=== PATIENT | female | born 1960 | race Caucasian/White ===

== ENCOUNTER 2019-01-01 11:51 | Observation (INO) ==
[2019-01-01] MEDS ORDERED: Ipratropium/Albuterol Neb 3 ML IH ONE (11:53)
[2019-01-01 12:28] LABS: Eosinophils # 0.2 K/mcL (0.0-0.6); Hematocrit 47.5 % (35.3-44.9); Hemoglobin 16.6 g/dL (11.5-15.4); Mean Corpuscular HGB Conc 34.9 g/dL (31.6-35.5); Mean Corpuscular Hemoglobin 33.5 pg (28.0-33.3); Mean Platelet Volume 9.4 fL (9.4-12.4); Platelet Count 223 K/mcL (140-400); Red Blood Count 4.95 M/mcL (3.82-4.97)
[2019-01-01 12:46] LABS: BUN/Creatinine Ratio 12 (6-26); Blood Urea Nitrogen 7 mg/dL (8-23); Calcium 9.4 mg/dL (8.6-10.3); Carbon Dioxide 27 mEq/L (23-29); Chloride 100 mEq/L (98-107); Glucose 133 mg/dL (70-105); Osmolality,Calculated 286 (280-300); Potassium 3.6 mEq/L (3.5-5.1); Sodium 138 mEq/L (136-145); eGFR For Non-African Americans > 60 (> 60)
[2019-01-01 12:47] LABS: Troponin I < 0.03 ng/mL (< 0.04)
[2019-01-01 12:57] LABS: ABG Base Excess -2 mEq/L (-2 to 3); ABG HCO3 23 mEq/L (21-27); ABG Oxygen Saturation 90 % (95-98); ABG PCO2 40 mmHg (35-45); ABG PH 7.38 pH Units (7.32-7.45); ABG PO2 60 mmHg (85-104); ABG TCO2 25 mEq/L (20-26); Blood Gas Respiration Rate 12
[2019-01-01 13:05] LABS: Anisocytosis 1+ (Not Present); Lymphocytes # 1.1 K/mcL (0.6-4.6); Monocytes # 0.9 K/mcL (0.0-1.3); Neutrophils # 3.9 K/mcL (1.6-8.9); Platelet Estimate Normal (Normal); Polychromasia 1+ (Not Present)
[2019-01-01 13:06] LABS: Toxic Granulation Present (Not Present)
--- NOTE | 2019-01-01 13:12 | Emergency Department Note ---
Disposition Clinical Impression: Acute exacerbation of chronic obstructive airways disease, Acute respiratory distress Disposition: Admitted As Inpatient Condition: Fair Referrals: NONE,PCP [Primary Care Provider] - Time of Disposition: 13:19 SOB HPI - General Chief Complaint: ED Shortness of Breath/Dyspnea Stated Complaint: Shortness of breath Time Seen by Provider: 01/01/19 11:52 Source: patient, EMS Limitations: no limitations Nursing Notes Reviewed: Yes Vital Signs Reviewed: Yes - History of Present Illness Pt Subjective Complaint: shortness of breath Onset (ago): day(s) (3 days) Context: recent illness (Couple days before the onset of shortness of breath she had developed head cold and runny nose symptoms.) Severity: severe Consistency/Duration: constant Improves with: nothing Worsens with: exertion Known history of: COPD Associated symptoms: Reports: cough, wheezing. Denies: chest pain Treatment prior to arrival: oxygen, bronchodilator, NIPPV Cough present: Yes - Related Data Home oxygen amount: none Home Medications Medication Instructions Recorded Confirmed Aspirin 81 mg PO HS 07/13/15 11/06/18 Cholecalciferol (Vitamin D3) 1,000 unit PO DAILY 07/13/15 11/06/18 [Vitamin D] Clopidogrel Bisulfate [Plavix] 75 mg PO DAILY 07/13/15 11/06/18 Guaifenesin [Mucinex] 600 mg PO BID 07/13/15 11/06/18 Magnesium Oxide [Magnesium] 400 mg PO BID 07/13/15 11/06/18 Nitroglycerin [Nitrostat] 0.4 mg SL [id number] PRN 07/13/15 11/06/18 Roflumilast [Daliresp] 500 mcg PO 07/13/15 11/06/18 Docusate Sodium [Colace] 250 mg PO DAILY PRN 07/18/15 11/06/18 Pantoprazole Sodium [Protonix] 40 mg PO DAILY 07/18/15 11/06/18 OxyCODONE/APAP 7.5/325 [Percocet 1 tab PO Q6HR PRN 06/18/16 11/06/18 7.5/325 MG] Ranolazine [Ranexa] 500 mg PO BID 06/18/16 11/06/18 Loratadine [Allergy Relief] 10 mg PO DAILY 06/05/17 11/06/18 Niacin (24 HR) [Niaspan] 500 mg PO DAILY 06/05/17 11/06/18 Potassium Chloride [Klor-Con 10] 10 meq PO DAILY 06/05/17 11/06/18 EPINEPHrine [Epipen] 0.3 mg IM ONCE PRN 01/22/18 11/06/18 Ferrous Sulfate 325 mg PO BID 01/22/18 11/06/18 Immune Globulin, Gamma (IGG) 35 units IJ QWEEK 01/22/18 11/06/18 [Privigen 10% 10 GM/100 ML] Albuterol Sulfate [Ventolin Hfa] 2 puff IH Q4H PRN 07/22/18 11/06/18 Fluticasone Propionate Nasal 2 spr NS DAILY 07/22/18 11/06/18 [Flonase] Gabapentin [Neurontin] 300 mg PO TID 07/22/18 11/06/18 Losartan Potassium [Cozaar] 50 mg PO DAILY 07/22/18 11/06/18 Metformin HCl 1,000 mg PO BID 07/22/18 11/06/18 Metoprolol Succinate [Toprol Xl] 50 mg PO HS 07/22/18 11/06/18 Montelukast [Singulair] 10 mg PO HS 07/22/18 11/06/18 amLODIPine [Norvasc] 5 mg PO DAILY 07/22/18 11/06/18 glipiZIDE [Glucotrol] 10 mg PO BIDWM 07/22/18 11/06/18 Previous Rx's Medication Instructions Recorded Ascorbic Acid [Vitamin C] 500 mg PO BID tablet 06/21/16 Acetaminophen [Tylenol] 650 mg PO Q6HR PRN #0 tablet 09/07/16 Sertraline [Zoloft] 50 mg PO HS #30 tablet 09/12/16 Oxygen 2 - 5 l .ROUTE CONT #1 each 02/10/18 Budesonide Neb [Pulmicort Neb] 0.5 mg IH BIDR #60 inhsol 11/17/18 Calcium Carbonate [Tums] 1,000 mg PO Q4HR PRN tab.chew 11/17/18 DiphenhydraMINE [Benadryl] 25 mg PO HS PRN capsule 11/17/18 Ipratropium/Albuterol Neb [Duoneb] 3 ml IH [id number] #120 inhsol 11/17/18 Isosorbide MONOnitrate (24 HR) 90 mg PO DAILY #30 tab.er.24h 11/17/18 [Imdur] Simvastatin [Zocor] 10 mg PO HS #30 tablet 11/17/18 Theophylline Anhydrous [Theodur] 300 mg PO BID #60 tab.er.12h 11/17/18 Allergies Allergy/AdvReac Type Severity Reaction Status Date / Time Penicillins Allergy Difficulty Verified 07/22/18 10:41 Breathing Sulfa (Sulfonamide Allergy Difficulty Verified 07/22/18 10:41 Antibiotics) Breathing sulfamethoxazole Allergy Difficulty Verified 07/22/18 10:41 [From Bactrim] Breathing trimethoprim [From Bactrim] Allergy Difficulty Verified 07/22/18 10:41 Breathing furosemide [From Lasix] AdvReac Dizziness Verified 07/22/18 10:41 All systems ED: reviewed and negative except as stated. Constitutional: Denies: fever, chills ENT ED: Reports: congestion. Denies: ear pain, throat pain Cardiovascular: Denies: chest pain, palpitations Respiratory: Reports: cough, dyspnea, wheezes Gastrointestinal: Denies: abdominal pain, nausea, vomiting, diarrhea Integumentary: Denies: rash Neurological: Denies: headache Past Medical History - Past Medical History Attestation: Yes The following information was validated with the patient. 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 Absent: scleral icterus, conjunctival injection - ENT ENT exam: normal exam, normal oropharynx, mucous membranes moist, normal external ear exam - Neck Neck exam: Present: normal inspection, full ROM, trachea midline - Chest Chest inspection: Present: normal inspection, symmetric chest wall rise. Absent: tenderness - Respiratory Respiratory exam: Present: respiratory distress, wheezes, accessory muscle use - Cardiovascular Cardiovascular exam: Present: normal rhythm, tachycardia, normal heart sounds - Abdominal Exam Abdominal exam: Present: soft, Non-Tender, normal bowel sounds - Extremities Exam Extremities exam: Present: normal inspection. Absent: tenderness, pedal edema - Neurological Exam Neurological exam: Present: alert, oriented X3 - Psychiatric Psychiatric exam: Present: normal affect, normal mood - Skin Skin exam: Present: warm, dry. Absent: rash Course Course Narrative: Patient arrives emergency Department respiratory distress. Seems like a COPD exacerbation most likely precipitated by the upper or story infection. She was in the hospital from the end of October to mid November for pneumonia and COPD exacerbation. She been doing well at home until a few days ago. They had her on CPAP on route. We switched to BiPAP and ran doing nebs through it. She artery see steroids on route. We will finish the breathing treatments and see how the BiPAP worse and then we will check the blood gases to see status. - Reevaluation(s) Reevaluation #1: Patient did a lot better on the BiPAP. Heart rate is under 100 at this point. Blood pressure is good. O2 sats are holding at 91-92%. We checked a blood gas at this point and she has a pH of 7.40 and a PCO2 of 40 with a PO2 of 60. Chest x-ray is clear with no indication of pneumonia. Labs are good except for some hemoconcentration. Patient will need to be admitted to the hospital but she is showing significant improvement already. I have already spoken with the hospitalist and he is accepted the patient for admission. Time: 13:17 - Consultations Consultation #1: Dr. Hernadez, hospitalist - I discussed case with the hospitalist and he accepted the patient for admission. Time: 13:08 Vital Signs Temperature 97.6 F 01/01/19 11:53 Pulse Rate 106 01/01/19 11:53 Respiratory Rate 26 01/01/19 11:53 Blood Pressure 172/125 01/01/19 11:53 O2 Sat by Pulse Oximetry 91 01/01/19 11:53 Temperature 97.6 F 01/01/19 11:53 Pulse Rate 87 01/01/19 13:07 Respiratory Rate 18 01/01/19 13:07 Blood Pressure 137/71 01/01/19 13:07 O2 Sat by Pulse Oximetry 91 01/01/19 13:07 Oxygen Delivery Oxygen Delivery Bipap Shortness of Breath/Dyspnea - Medical Records Medical records reviewed: Yes I reviewed the patient's medical records. - Lab Data Lab results reviewed: Yes I reviewed the patient's lab results. Result diagrams: 01/01/19 12:20 01/01/19 12:20 Lab Results 01/01/19 01/01/19 01/01/19 Range/Units 12:20 12:20 12:20 WBC 6.1 (4.3-11.1) K/mcL RBC 4.95 (3.82-4.97) M/mcL Hgb 16.6 H (11.5-15.4) g/dL Hct 47.5 H (35.3-44.9) % MCV 96.0 (83.0-100.0) fL MCH 33.5 H (28.0-33.3) pg MCHC 34.9 (31.6-35.5) g/dL RDW 14.0 (11.5-14.5) % Plt Count 223 (140-400) K/mcL MPV 9.4 (9.4-12.4) fL Seg Neutrophils % 64.0 % Lymphocytes % 18.0 % Monocytes % 14.0 % Eosinophils % 4.0 % Neutrophils # 3.9 (1.6-8.9) K/mcL Lymphocytes # 1.1 (0.6-4.6) K/mcL Monocytes # 0.9 (0.0-1.3) K/mcL Eosinophils # 0.2 (0.0-0.6) K/mcL Toxic Granulation Present A (Not Present) Platelet Estimate Normal (Normal) Polychromasia 1+ A (Not Present) Anisocytosis 1+ A (Not Present) Sample Site ABG pH (7.32-7.45) pH Units ABG pCO2 (35-45) mmHg ABG pO2 (85-104) mmHg ABG HCO3 (21-27) mEq/L ABG Total CO2 (20-26) mEq/L ABG O2 Saturation (95-98) % ABG Base Excess (-2 to 3) mEq/L Chava Test Respiration Rate O2 Delivery Device Inspired O2 (1-15=lpm [id number]=%) Sodium 138 (136-145) mEq/L Potassium 3.6 (3.5-5.1) mEq/L Chloride 100 (98-107) mEq/L Carbon Dioxide 27 (23-29) mEq/L BUN 7 L (8-23) mg/dL Creatinine 0.60 (0.60-1.20) mg/dL Est GFR ( Amer) > 60 (> 60) Est GFR (Non-Af Amer) > 60 (> 60) BUN/Creatinine Ratio 12 (6-26) Glucose 133 H (70-105) mg/dL Calculated Osmolality 286 (280-300) Calcium 9.4 (8.6-10.3) mg/dL Troponin I < 0.03 (< 0.04) ng/mL B-Natriuretic Peptide 22 (Less than 100) pg/mL 01/01/19 Range/Units 12:54 WBC (4.3-11.1) K/mcL RBC (3.82-4.97) M/mcL Hgb (11.5-15.4) g/dL Hct (35.3-44.9) % MCV (83.0-100.0) fL MCH (28.0-33.3) pg MCHC (31.6-35.5) g/dL RDW (11.5-14.5) % Plt Count (140-400) K/mcL MPV (9.4-12.4) fL Seg Neutrophils % % Lymphocytes % % Monocytes % % Eosinophils % % Neutrophils # (1.6-8.9) K/mcL Lymphocytes # (0.6-4.6) K/mcL Monocytes # (0.0-1.3) K/mcL Eosinophils # (0.0-0.6) K/mcL Toxic Granulation (Not Present) Platelet Estimate (Normal) Polychromasia (Not Present) Anisocytosis (Not Present) Sample Site R Brach ABG pH 7.38 (7.32-7.45) pH Units ABG pCO2 40 (35-45) mmHg ABG pO2 60 L (85-104) mmHg ABG HCO3 23 (21-27) mEq/L ABG Total CO2 25 (20-26) mEq/L ABG O2 Saturation 90 L (95-98) % ABG Base Excess -2 (-2 to 3) mEq/L Chava Test N/A Respiration Rate 12 O2 Delivery Device BiPAP Inspired O2 40.0 (1-15=lpm [id number]=%) Sodium (136-145) mEq/L Potassium (3.5-5.1) mEq/L Chloride (98-107) mEq/L Carbon Dioxide (23-29) mEq/L BUN (8-23) mg/dL Creatinine (0.60-1.20) mg/dL Est GFR ( Amer) (> 60) Est GFR (Non-Af Amer) (> 60) BUN/Creatinine Ratio (6-26) Glucose (70-105) mg/dL Calculated Osmolality (280-300) Calcium (8.6-10.3) mg/dL Troponin I (< 0.04) ng/mL B-Natriuretic Peptide (Less than 100) pg/mL - Radiology Data Radiology results reviewed: Yes I reviewed the patient's radiology results. - EKG Data EKG attestation: Yes I reviewed and interpreted this EKG. EKG results narrative: Twelve-lead EKG performed at 11:56 AM. Ordered, reviewed and interpreted by ED physician shows sinus tachycardia at a rate of 105. Normal axis. Good hour progression across corneum. No obvious acute ischemic changes are identified although the baseline is little bit wavy because of her respiratory effort. Critical Care Time Critical Care Time: Yes Total Critical Care Time: 30 Attestation: Patient arrived in severe respiratory distress requiring my urgent evaluation and intervention. Spent time with the history and physical as well as serial evaluations. Managing the BiPAP. Ordering labs and x-rays and interpreting them and responding to the results. Arranging admission via consultation with hospitalist.
[2019-01-01] MEDS ORDERED: Levofloxacin 750 MG/150 ML 750 MG/150 ML BAG IVPB ONE (13:20)
[2019-01-01] MEDS ORDERED: methylPREDNISolone 125 MG/2 ML VIAL IVP ONE (14:47)
[2019-01-01] MEDS ORDERED: Naloxone 0.4 MG/ML INJ IVP PRN (14:47)
[2019-01-01] MEDS: Ipratropium/Albuterol Neb 3 ML IH SCH ×2 (16:12→20:12)
[2019-01-01] MEDS: Gabapentin 300 MG CAPSULE PO SCH ×2 (16:20→20:53)
[2019-01-01] MEDS: 0.9 % Sodium Chloride 1,000 ML IVC SCH (16:21)
[2019-01-01] MEDS: *HR* GlipiZIDE 5 MG TABLET PO SCH (18:13)
[2019-01-01] MEDS ORDERED: *HR* Dextrose 50 % in Water (Syg) 50 ML SYRINGE IVP PRN (18:18)
[2019-01-01] MEDS ORDERED: Dextrose Gel 15 GM/37.5 ML TUBE PO PRN ×2 (18:18)
[2019-01-01] MEDS ORDERED: Dextrose 4 GM Chewable Tablets PO PRN ×2 (18:18)
[2019-01-01] MEDS ORDERED: D5% in Water 1,000 ML IVC PRN (18:18)
[2019-01-01] MEDS: Budesonide Neb 0.5 MG/2 ML IH SCH (20:12)
--- NOTE | 2019-01-01 20:18 | Electrocardiograph Report ---
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
[2019-01-01] MEDS: traZODone 50 MG TABLET PO PRN (20:54)
[2019-01-01] MEDS: Ranolazine 500 MG TAB.ER.12H PO SCH (20:54)
[2019-01-01] MEDS: Metoprolol XL (24 HR) Succ 50 MG TAB.ER.24H PO SCH (20:54)
[2019-01-01] MEDS: Aspirin 81 MG TAB.CHEW PO SCH (20:54)
[2019-01-01] MEDS ORDERED: *HR* Metformin 500 MG TABLET PO SCH (21:00)
[2019-01-01] MEDS: *HR* OxyCODONE/APAP 7.5/325 TABLET PO PRN (21:10)
[2019-01-01] MEDS: Insulin LISPRO 300 UNITS/3 ML VIAL SQ SCH (21:19)
[2019-01-02] MEDS: Ipratropium/Albuterol Neb 3 ML IH SCH ×7 (00:15→23:44)
[2019-01-02] MEDS: 0.9 % Sodium Chloride 1,000 ML IVC SCH (02:10)
[2019-01-02] MEDS ORDERED: Loratadine 10 MG TABLET PO SCH (09:00)
[2019-01-02] MEDS: Isosorbide MONOnitrate (24 HR) 60 MG TAB.ER.24H PO SCH (09:32)
[2019-01-02] MEDS: *HR* Metformin 500 MG TABLET PO SCH ×2 (09:32→16:06)
[2019-01-02] MEDS: amLODIPine 5 MG TABLET PO SCH (09:32)
[2019-01-02] MEDS: Ranolazine 500 MG TAB.ER.12H PO SCH ×2 (09:32→20:56)
[2019-01-02] MEDS: Gabapentin 300 MG CAPSULE PO SCH ×3 (09:35→20:56)
[2019-01-02] MEDS: *HR* OxyCODONE/APAP 7.5/325 TABLET PO PRN ×3 (09:35→22:40)
[2019-01-02] MEDS: Insulin LISPRO 300 UNITS/3 ML VIAL SQ SCH ×4 (09:35→21:07)
[2019-01-02] MEDS: *HR* GlipiZIDE 5 MG TABLET PO SCH ×2 (09:36→16:05)
[2019-01-02] MEDS: Budesonide Neb 0.5 MG/2 ML IH SCH ×2 (10:02→20:17)
[2019-01-02] MEDS: Fluticasone Propionate Nasal 50 MCG/SPRAY BOTTLE NS SCH (10:44)
--- NOTE | 2019-01-02 12:15 | Internal Med History&Physical ---
Date of Encounter: 01/02/19 Time of Encounter: 11:45 Assessment and Plan (1) COPD exacerbation Current visit: No Status: Acute She was started on her home pulmonary regimen and Solu-Medrol emergency room. Theophylline will be discontinued to avoid interaction with Levaquin. Further workup will be done as needed. (2) Hypertension Current visit: No Status: Chronic Continue Norvasc, Cozaar, and Toprol Qualifiers: Hypertension type: essential hypertension Qualified Code(s): I10 - Essential (primary) hypertension (3) CASSIA (obstructive sleep apnea) Current visit: No Status: Chronic Continue BiPAP at bedtime (4) CAD (coronary artery disease) Current visit: No Status: Chronic Status post multiple stents. Continue aspirin, Plavix, Toprol, Norvasc, and Imdur Qualifiers: Coronary Disease-Associated Artery/Lesion type: [place] artery [place] vs. transplanted heart: [place] heart Associated angina: without angina Qualified Code(s): I25.10 - Atherosclerotic heart disease of [place] coronary artery without angina pectoris Internal Medicine - H&P: HPI Chief complaint: Dyspnea Admitted From: Emergency Dept Plans for Post Hospital Care: Home History of present illness: Ms. Cai is a 58 year old female who came to emergency room complaining of increased dyspnea onset evening of December 30. When symptoms did not improve after 2 days she came to emergency room. She was evaluated and was felt to have exacerbation of COPD. She was admitted to [facility] floor for ongoing care needs. She reports taking Levaquin 750 mg daily beginning 12/23/2018. Respiratory history is significant for having smoked from age 18 until quitting approximately 2 months ago. She smoked up to one and one half packs per day. PFTs 12/30/2018 showed FVC 55% predicted, FEV1 37% predicted, FEV1/FVC 52%, MVV 38% predicted, RV 126% predicted, and DLCO (uncorrected) 12% predicted. Findings were consistent with severe obstructive lung disease with hyperinflation and air trapping. There also appears to be mild to moderate restrictive lung disease. Chest CT of 10/24/2018 showed diffuse emphysematous changes without obvious infiltrate, lymphadenopathy, or other worrisome pathology. She reports she has been prescribed oxygen which she wears routinely at bedtime but only uses during the daytime when she feels dyspneic. She reports rare daytime use. She has been diagnosed with CASSIA and uses BiPAP at bedtime. She reports spontaneous pneumothorax requiring chest tube in 2018. Past Med Surg Social Fam HX - Past Medical History Medical history: asthma, COPD, coronary artery disease, diabetes, hyper lipidemia, hypertension, myocardial infarction, other Additional medical history: IGG Psychiatric history: anxiety, depression - Past Surgical History Surgical History: , herniorrhaphy, hysterectomy, other Additional surgical history: knee surgery, bilat shoulder surgery, 5 cardiac stents - Social History Smoking Status: Current every day smoker Packs per day: 0.5 Smokeless Tobacco Status: No Alcohol use: none Drug use: none - Family History Paternal Grandfather Living Status: Hx Family Cardiac Disorders: Yes ([place]) Paternal Grandmother Adopted: No Living Status: Hx Family Cancer: Yes (Lung cancer) Mother Hx Family Cardiac Disorders: Yes (Heart disease and hypertension) Hx Family Cancer: Yes (leukemia, breast cancer) Hx Family Endocrine Disorder: Yes (Diabetes) Father Living Status: Hx Family Cardiac Disorders: Yes Hx Family Respiratory Disorders: Yes Hx Family Cancer: No Hx Family Endocrine Disorder: No Brother Living Status: Hx Family Cancer: Yes (unknown type cancer) Sister Living Status: Hx Family Cardiac Disorders: Yes (Heart disease) Hx Family Respiratory Disorders: Yes (COPD) Hx Family Cancer: Yes (leukemia) Hx Family Endocrine Disorder: Yes ("thyroid problems") Internal Medicine - H&P: Meds Amlodipine Besylate 5 mg PO DAILY 01/01/19 [History] Aspirin [Lo-Dose Aspirin EC] 81 mg PO DAILY 01/01/19 [History] Azithromycin [Zithromax] 250 mg PO DAILY 01/01/19 [History] Budesonide [Pulmicort] 1 aerosol IH BID 01/01/19 [History] Clopidogrel [Plavix] 75 mg PO DAILY 01/01/19 [History] Fluticasone Propionate [Flovent Diskus] 100 mcg IH TID 01/01/19 [History] Fluticasone Propionate [Flovent Diskus] 100 mcg IH TID PRN 01/01/19 [History] Gabapentin [Neurontin] 300 mg PO TID 01/01/19 [History] GlipiZIDE [Glipizide Xl] 5 mg PO BID 01/01/19 [History] Isosorbide MONOnitrate [Isosorbide Mononitrate ER] 120 mg PO DAILY 01/01/19 [History] Levofloxacin [Levaquin] 750 mg PO DAILY 01/01/19 [History] Losartan Potassium [Cozaar] 50 mg PO DAILY 01/01/19 [History] Metformin HCl [Glucophage] 1,000 mg PO BID 01/01/19 [History] Metoprolol Succinate 50 mg PO HS 01/01/19 [History] Montelukast [Singulair] 10 mg PO DAILY 01/01/19 [History] Nitroglycerin [Nitrostat] 0.4 mg SL PRN PRN 01/01/19 [History] Oxycodone HCl/Acetaminophen [Percocet 7.5-325 mg Tablet] 1 each PO DAILY 01/01 [History] Pantoprazole Sodium 40 mg PO DAILY 01/01/19 [History] Potassium Chloride [Klor-Con 10] 10 meq PO DAILY 01/01/19 [History] Ranolazine [Ranexa] 500 mg PO BID 01/01/19 [History] Roflumilast [Daliresp] 500 mcg PO DAILY 01/01/19 [History] Sertraline [Zoloft] 50 mg PO DAILY 01/01/19 [History] Simvastatin [Zocor] 40 mg PO HS 01/01/19 [History] Theophylline Anhydrous [[place]ob[place]-24] 300 mg PO DAILY 01/01/19 [History] Theophylline Anhydrous [Theophylline] 300 mg PO BID 01/01/19 [History] Allergy/AdvReac Type Severity Reaction Status Date / Time Penicillins Allergy Difficulty Verified 07/22/18 10:41 Breathing Sulfa (Sulfonamide Allergy Difficulty Verified 07/22/18 10:41 Antibiotics) Breathing sulfamethoxazole Allergy Difficulty Verified 07/22/18 10:41 [From Bactrim] Breathing trimethoprim [From Bactrim] Allergy Difficulty Verified 07/22/18 10:41 Breathing furosemide [From Lasix] AdvReac Dizziness Verified 07/22/18 10:41 All Systems PM: A 10-system review of systems was performed and is negative for pertinent findings except as documented above in the HPI. Review of systems: Gen.: Her weight has been stable for the past year Cardiovascular: She has history of hypertension. She reports 2 MIs with a total of 5 stents placed. Her last heart catheter was 2015 with stents placed. She had Regadenoson EST 04/23/2018 which did not show perfusion imaging evidence of ischemia. The EKG portion was nondiagnostic due to baseline nonspecific ST-T abnormality. Echocardiogram 10/31/2018 showed LVEF of 55-60%. The interventricular septum and posterior wall thickness measurements were 1.10 cm each. Previous echocardiogram 02/08/2018 showed no significant valvular abnormalities. She denies DVT or pulmonary emboli. Respiratory: As per history of present illness GI: She denies disorders of her liver gallbladder or exocrine pancreas : She denies hematuria dysuria or kidney stones Neurologic: She has diabetic peripheral neuropathy. She denies large distrib ution strokes or seizures. Endocrine: She was diagnosed with DM 2 approximately 1999. She has hyper lipidemia but denies thyroid disease Hematology/oncology: She has IgG deficiency. She denies anemia, internal malignancy, or other blood disorders. Psychiatric: She has anxiety and depression denies other mental health diagnosis. [place] skeletal: She is had right knee debridement, right shoulder debridement 2, left shoulder debridement 1, and back surgery. She has chronic low back pain. Denies gout. - Constitutional Vitals: Temp Pulse Resp BP Pulse Ox 97.4 F L 82 20 116/69 91 01/02/19 10:45 01/02/19 10:45 01/02/19 10:45 01/02/19 10:45 01/02/19 10:45 Exam: Gen.: She is a well-developed well-nourished female resting in bed and appears slightly dyspneic. She is wearing oxygen by nasal cannula. HEENT: Head is atraumatic and normocephalic. Eyes: EOMI. There is no scleral icterus. Mouth: Mucosa is moist. Neck: Supple and nontender. There is no thyromegaly or adenopathy noted. Heart: Heart tones are soft and difficult to hear. No murmurs are heard. Lungs: No wheezes or crackles are heard. He has a few scattered rhonchi. She has diminished breath sounds diffusely. Abdomen: Soft and nontender. No masses or guarding are noted. Extremities: There is no cyanosis edema or clubbing noted. Dorsalis pedis and posttibial pulses are trace to 1+ palpable bilaterally. Neurologic: Mental status: She is talkative and a good historian. Cranial nerves: Smile is symmetric. Forehead wrinkles bilaterally. Tongue protrudes midline. EOMI. Motor: There is no pronator drift. Cerebellar: Finger to nose is intact bilaterally. Skin: Warm and dry Internal Med - H&P Results - Labs CBC & Chem 7: 01/01/19 12:20 01/01/19 12:20 Labs: Short CBC 01/01/19 Range/Units 12:20 WBC 6.1 (4.3-11.1) K/mcL Hgb 16.6 H (11.5-15.4) g/dL Hct 47.5 H (35.3-44.9) % Plt Count 223 (140-400) K/mcL Neutrophils # 3.9 (1.6-8.9) K/mcL BMP 01/01/19 12:20 Sodium 138 Potassium 3.6 Chloride 100 Carbon Dioxide 27 BUN 7 L Creatinine 0.60 Glucose 133 H Calcium 9.4 Cardiac Enzymes 01/01/19 Range/Units 12:20 Troponin I < 0.03 (< 0.04) ng/mL - ABG Interpretation ABG results: 01/01/19 12:54 ABG pH 7.38 ABG pCO2 40 ABG pO2 60 L ABG HCO3 23 ABG Total CO2 25 ABG O2 Saturation 90 L ABG Base Excess -2 - Impressions ITS Impressions Chest X-Ray 01/01/19 11:53 IMPRESSION: No acute cardiopulmonary process. COPD. D/ / Autumn Bragg MD / Autumn Bragg MD Interpreting Provider: Autumn Bragg MD
[2019-01-02] MEDS: Levofloxacin 750 MG/150 ML 750 MG/150 ML BAG IVPB SCH (14:12)
[2019-01-02] MEDS: predniSONE 20 MG TABLET PO SCH (16:06)
[2019-01-02] MEDS: ALPRAZolam 0.25 MG TABLET PO PRN (20:56)
[2019-01-02] MEDS: Aspirin 81 MG TAB.CHEW PO SCH (20:56)
[2019-01-02] MEDS: traZODone 50 MG TABLET PO PRN (20:57)
[2019-01-02] MEDS: Metoprolol XL (24 HR) Succ 50 MG TAB.ER.24H PO SCH (20:57)
[2019-01-03] MEDS: Ipratropium/Albuterol Neb 3 ML IH SCH ×6 (04:24→22:39)
[2019-01-03 05:53] LABS: Basophils % 0.1 %; Hematocrit 39.3 % (35.3-44.9); Hemoglobin 13.4 g/dL (11.5-15.4); Immature Granulocytes % 0.4 % (0-4); Lymphocytes # 0.9 K/mcL (0.6-4.6); Lymphocytes % 6.8 %; Mean Corpuscular HGB Conc 34.1 g/dL (31.6-35.5); Mean Corpuscular Hemoglobin 33.3 pg (28.0-33.3); Mean Corpuscular Volume 97.8 fL (83.0-100.0); Mean Platelet Volume 9.8 fL (9.4-12.4); Monocytes # 0.7 K/mcL (0.0-1.3); Monocytes % 5.5 %; Platelet Count 251 K/mcL (140-400); Red Blood Count 4.02 M/mcL (3.82-4.97); Red Cell Distribution Width 14.3 % (11.5-14.5); Segmented Neutrophils % 87.2 %
[2019-01-03 05:56] LABS: Neutrophils # 11.8 K/mcL (1.6-8.9)
[2019-01-03] MEDS: *HR* GlipiZIDE 5 MG TABLET PO SCH ×2 (07:58→16:42)
[2019-01-03] MEDS: Insulin LISPRO 300 UNITS/3 ML VIAL SQ SCH ×4 (08:01→20:16)
[2019-01-03] MEDS: *HR* OxyCODONE/APAP 7.5/325 TABLET PO PRN ×3 (08:02→20:15)
[2019-01-03] MEDS: predniSONE 20 MG TABLET PO SCH ×2 (08:03→16:42)
[2019-01-03] MEDS: Isosorbide MONOnitrate (24 HR) 60 MG TAB.ER.24H PO SCH (08:03)
[2019-01-03] MEDS: Ranolazine 500 MG TAB.ER.12H PO SCH ×2 (08:04→20:14)
[2019-01-03] MEDS: Fluticasone Propionate Nasal 50 MCG/SPRAY BOTTLE NS SCH (08:04)
[2019-01-03] MEDS: Gabapentin 300 MG CAPSULE PO SCH ×3 (08:04→20:14)
[2019-01-03] MEDS: *HR* Metformin 500 MG TABLET PO SCH ×2 (09:08→16:42)
[2019-01-03] MEDS: amLODIPine 5 MG TABLET PO SCH (09:10)
[2019-01-03 09:17] LABS: Thyroid Stimulating Hormone 0.502 mcIU/mL (0.340-5.600)
[2019-01-03 09:33] LABS: Folate 6.8 ng/mL (3.0-16.0)
--- NOTE | 2019-01-03 10:05 | Internal Med Progress Note ---
Date of Encounter: 01/03/19 Time of Encounter: 09:55 - Assessment and plan (1) COPD exacerbation Current Visit: No Status: Acute Assessment and plan: January 03. Continue duo nebs, Pulmicort, Flonase, Levaquin, and prednisone. (2) Hypertension Current Visit: No Status: Chronic Assessment and plan: January 03. Continue Norvasc, Cozaar, and Toprol Qualifiers: Hypertension type: essential hypertension Qualified Code(s): I10 - Essential (primary) hypertension (3) CASSIA (obstructive sleep apnea) Current Visit: No Status: Chronic Assessment and plan: January 03. Continue BiPAP at bedtime (4) CAD (coronary artery disease) Current Visit: No Status: Chronic Assessment and plan: January 03. Continue aspirin, Plavix, Toprol, Norvasc, and Imdur Qualifiers: Coronary Disease-Associated Artery/Lesion type: [place] artery [place] vs. transplanted heart: [place] heart Associated angina: without angina Qualified Code(s): I25.10 - Atherosclerotic heart disease of [place] coronary artery with out angina pectoris - Subjective Interval history: January 03. She has no new complaints and feels slightly improved. - Constitutional Vitals: Temp Pulse Resp BP Pulse Ox 97.8 F 75 18 109/69 95 01/03/19 07:40 01/03/19 09:00 01/03/19 08:50 01/03/19 09:00 01/03/19 08:52 Exam: She is resting comfortably in bed and appears in no acute distress. She is wearing oxygen by nasal cannula. Lungs show prolonged expiratory phase and mild wheezing. I reviewed her medications and lab results. Internal Medicine: Result - Labs CBC & Chem 7: 01/03/19 05:44 01/01/19 12:20 Labs: Short CBC 01/03/19 Range/Units 05:44 WBC 13.5 H D (4.3-11.1) K/mcL Hgb 13.4 D (11.5-15.4) g/dL Hct 39.3 (35.3-44.9) % Plt Count 251 (140-400) K/mcL Neutrophils # 11.8 H (1.6-8.9) K/mcL - ABG Interpretation ABG results: ABG ABG pH 7.38 pH Units (7.32-7.45) 01/01/19 12:54 ABG pCO2 40 mmHg (35-45) 01/01/19 12:54 ABG pO2 60 mmHg (85-104) L 01/01/19 12:54 ABG O2 Saturation 90 % (95-98) L 01/01/19 12:54 Consult Discharge Plan - Plan Referrals: NONE,PCP [Primary Care Provider] - 1 week
[2019-01-03] MEDS: Budesonide Neb 0.5 MG/2 ML IH SCH ×2 (10:28→22:39)
[2019-01-03] MEDS: Levofloxacin 750 MG/150 ML 750 MG/150 ML BAG IVPB SCH (13:49)
[2019-01-03] MEDS ORDERED: IMMUNE GLOBULIN MC SCH (16:23)
[2019-01-03] MEDS: Metoprolol XL (24 HR) Succ 50 MG TAB.ER.24H PO SCH (20:14)
[2019-01-03] MEDS: Aspirin 81 MG TAB.CHEW PO SCH (20:14)
[2019-01-03] MEDS: traZODone 50 MG TABLET PO PRN (20:15)
[2019-01-03] MEDS: ALPRAZolam 0.25 MG TABLET PO PRN (20:15)
[2019-01-04] MEDS: *HR* OxyCODONE/APAP 7.5/325 TABLET PO PRN ×2 (03:55→10:04)
[2019-01-04] MEDS: Ipratropium/Albuterol Neb 3 ML IH SCH ×2 (04:44→08:23)
[2019-01-04 06:28] VITALS: BP 109/61
[2019-01-04] MEDS: Budesonide Neb 0.5 MG/2 ML IH SCH (08:23)
[2019-01-04] MEDS: Insulin LISPRO 300 UNITS/3 ML VIAL SQ SCH (09:01)
--- NOTE | 2019-01-04 09:16 | Discharge Summary ---
Orders not resulted at time of discharge: Pending orders 01/01/19 12:10 Culture,Blood [BC] Stat Date of Encounter: 01/04/19 Time of Encounter: 09:05 - Discharge Diagnosis (1) COPD exacerbation Priority: Primary Status: Acute (2) Hypertension Priority: Secondary Status: Chronic Qualifiers: Hypertension type: essential hypertension Qualified Code(s): I10 - Essential (primary) hypertension (3) CASSIA (obstructive sleep apnea) Priority: Secondary Status: Chronic (4) CAD (coronary artery disease) Priority: Secondary Status: Chronic Qualifiers: Coronary Disease-Associated Artery/Lesion type: [place] artery [place] vs. transplanted heart: [place] heart Associated angina: without angina Qualified Code(s): I25.10 - Atherosclerotic heart disease of [place] coronary artery without angina pectoris Hospital course: Ms. Cai is a 58 year old female who came to emergency room complaining of increased dyspnea onset evening of December 30. When symptoms did not improve after 2 days she came to emergency room. She was evaluated and was felt to have exacerbation of COPD. She was admitted to [facility] floor for ongoing care needs. Initial orders were written by the emergency room physician. I saw her on January 02 and performed the history and physical. She was given IV Levaquin with Solu-Medrol initially. Theophylline was discontinued to avoid interaction with Levaquin. She had gradual improvement in her dyspnea. She required oxygen 24/7 to maintain satisfactory oxygenation. On January 04 I felt she was stable for discharge home. She will not continue with antibiotics or probiotics at discharge other than maintenance Zithromax. She will continue with prednisone 20 mg twice a day for 3 additional days. She will follow with her PCP Dr. Daigle within 1 week. - Time Spent with Patient Total time spent providing and/or coordinating discharge services: - Discharge Medications Prescriptions: New predniSONE [PredniSONE] 20 mg PO BIDWM #6 tablet traZODone [TraZODone] 50 mg PO HS PRN #30 tablet PRN Reason: Sleep Continue Theophylline Anhydrous [Yobani-24] 300 mg PO DAILY Fluticasone Propionate [Flovent Diskus] 100 mcg IH TID PRN PRN Reason: Cough Sertraline [Zoloft] 50 mg PO DAILY Metoprolol Succinate 50 mg PO HS Roflumilast [Daliresp] 500 mcg PO DAILY Ranolazine [Ranexa] 500 mg PO BID Metformin HCl [Glucophage] 1,000 mg PO BID Potassium Chloride [Klor-Con 10] 10 meq PO DAILY Clopidogrel [Plavix] 75 mg PO DAILY Aspirin [Lo-Dose Aspirin EC] 81 mg PO DAILY GlipiZIDE [Glipizide Xl] 5 mg PO BID Simvastatin [Zocor] 40 mg PO HS Pantoprazole Sodium 40 mg PO DAILY Montelukast [Singulair] 10 mg PO DAILY Amlodipine Besylate 5 mg PO DAILY Oxycodone HCl/Acetaminophen [Percocet 7.5-325 mg Tablet] 1 each PO DAILY Gabapentin [Neurontin] 300 mg PO TID Azithromycin [Zithromax] 250 mg PO DAILY Nitroglycerin [Nitrostat] 0.4 mg SL PRN PRN PRN Reason: Chest Pain Isosorbide MONOnitrate [Isosorbide Mononitrate ER] 120 mg PO DAILY Fluticasone Propionate [Flovent Diskus] 100 mcg IH TID Budesonide [Pulmicort] 1 aerosol IH BID Losartan Potassium [Cozaar] 50 mg PO DAILY Theophylline Anhydrous [Theophylline] 300 mg PO BID Discontinued Levofloxacin [Levaquin] 750 mg PO DAILY Home Medications: Amlodipine Besylate 5 mg PO DAILY 01/01/19 [History] Aspirin [Lo-Dose Aspirin EC] 81 mg PO DAILY 01/01/19 [History] Azithromycin [Zithromax] 250 mg PO DAILY 01/01/19 [History] Budesonide [Pulmicort] 1 aerosol IH BID 01/01/19 [History] Clopidogrel [Plavix] 75 mg PO DAILY 01/01/19 [History] Fluticasone Propionate [Flovent Diskus] 100 mcg IH TID 01/01/19 [History] Fluticasone Propionate [Flovent Diskus] 100 mcg IH TID PRN 01/01/19 [History] Gabapentin [Neurontin] 300 mg PO TID 01/01/19 [History] GlipiZIDE [Glipizide Xl] 5 mg PO BID 01/01/19 [History] Isosorbide MONOnitrate [Isosorbide Mononitrate ER] 120 mg PO DAILY 01/01/19 [History] Losartan Potassium [Cozaar] 50 mg PO DAILY 01/01/19 [History] Metformin HCl [Glucophage] 1,000 mg PO BID 01/01/19 [History] Metoprolol Succinate 50 mg PO HS 01/01/19 [History] Montelukast [Singulair] 10 mg PO DAILY 01/01/19 [History] Nitroglycerin [Nitrostat] 0.4 mg SL PRN PRN 01/01/19 [History] Oxycodone HCl/Acetaminophen [Percocet 7.5-325 mg Tablet] 1 each PO DAILY 01/01/19 [History] Pantoprazole Sodium 40 mg PO DAILY 01/01/19 [History] Potassium Chloride [Klor-Con 10] 10 meq PO DAILY 01/01/19 [History] Ranolazine [Ranexa] 500 mg PO BID 01/01/19 [History] Roflumilast [Daliresp] 500 mcg PO DAILY 01/01/19 [History] Sertraline [Zoloft] 50 mg PO DAILY 01/01/19 [History] Simvastatin [Zocor] 40 mg PO HS 01/01/19 [History] Theophylline Anhydrous [Yobani-24] 300 mg PO DAILY 01/01/19 [History] Theophylline Anhydrous [Theophylline] 300 mg PO BID 01/01/19 [History] predniSONE [PredniSONE] 20 mg PO BIDWM #6 tablet 01/04/19 [Rx] traZODone [TraZODone] 50 mg PO HS PRN #30 tablet 01/04/19 [Rx] Allergies/Adverse Reactions: Allergy/AdvReac Type Severity Reaction Status Date / Time Penicillins Allergy Difficulty Verified 07/22/18 10:41 Breathing Sulfa (Sulfonamide Allergy Difficulty Verified 07/22/18 10:41 Antibiotics) Breathing sulfamethoxazole Allergy Difficulty Verified 07/22/18 10:41 [From Bactrim] Breathing trimethoprim [From Bactrim] Allergy Difficulty Verified 07/22/18 10:41 Breathing furosemide [From Lasix] AdvReac Dizziness Verified 07/22/18 10:41 Date of admission: 01/01/19 14:06 Primary care physician: Iftikhar Daigle M.D. Consults: 01/01/19 15:44 Consult to [employer] [CONS] Routine Reason for SW Consult: Pt has home health and home oxygen - Constitutional Vitals: Temp Pulse Resp BP Pulse Ox 97.6 F 71 18 109/61 90 01/04/19 06:25 01/04/19 06:25 01/04/19 08:24 01/04/19 06:25 01/04/19 08:24 - Patient Status Disposition: Home, Self-Care Condition: Fair - Discharge Instructions Follow Up With: Iftikhar Daigle MD [Partnered Physician] - 1 week - Diet and Activity Activity: resume usual activities as tolerated, wear oxygen at all times Diet: advance to your usual diet
--- NOTE | 2019-01-04 09:44 | Physician Discharge Referral ---
Home Health/Hosp Referral Info Transfer to: Home Health Attending Provider: Satya Provider in Charge Post Discharge: PCP [place]) - Diagnosis (1) COPD exacerbation Priority: Primary Status: Acute (2) Hypertension Priority: Secondary Status: Chronic (3) CASSIA (obstructive sleep apnea) Priority: Secondary Status: Chronic (4) CAD (coronary artery disease) Priority: Secondary Status: Chronic - Respiratory Orders Oxygen / L per min (2 L/m by nasal cannula 28/05) Smoking Cessation: Smoking cessation has been advised. For more information, call the [place] Tobacco Quit Line at 2-551-YEYV-NOW. - Diet/Nutrition Diet/Nutrition Orders: Regular - Activity Activity Orders: Ambulate - Services Needed Following services are medically necessary services: Nursing, Home Health Aide, Physical Therapy, Occupational Therapy - Transfer Medications Prescriptions: predniSONE [PredniSONE] 20 mg PO BIDWM #6 tablet traZODone [TraZODone] 50 mg PO HS PRN #30 tablet PRN Reason: Sleep Home Medications: Amlodipine Besylate 5 mg PO DAILY 01/01/19 [History] Aspirin [Lo-Dose Aspirin EC] 81 mg PO DAILY 01/01/19 [History] Azithromycin [Zithromax] 250 mg PO DAILY 01/01/19 [History] Budesonide [Pulmicort] 1 aerosol IH BID 01/01/19 [History] Clopidogrel [Plavix] 75 mg PO DAILY 01/01/19 [History] Fluticasone Propionate [Flovent Diskus] 100 mcg IH TID 01/01/19 [History] Fluticasone Propionate [Flovent Diskus] 100 mcg IH TID PRN 01/01/19 [History] Gabapentin [Neurontin] 300 mg PO TID 01/01/19 [History] GlipiZIDE [Glipizide Xl] 5 mg PO BID 01/01/19 [History] Isosorbide MONOnitrate [Isosorbide Mononitrate ER] 120 mg PO DAILY 01/01/19 [History] Losartan Potassium [Cozaar] 50 mg PO DAILY 01/01/19 [History] Metformin HCl [Glucophage] 1,000 mg PO BID 01/01/19 [History] Metoprolol Succinate 50 mg PO HS 01/01/19 [History] Montelukast [Singulair] 10 mg PO DAILY 01/01/19 [History] Nitroglycerin [Nitrostat] 0.4 mg SL PRN PRN 01/01/19 [History] Oxycodone HCl/Acetaminophen [Percocet 7.5-325 mg Tablet] 1 each PO DAILY 01/01/19 [History] Pantoprazole Sodium 40 mg PO DAILY 01/01/19 [History] Potassium Chloride [Klor-Con 10] 10 meq PO DAILY 01/01/19 [History] Ranolazine [Ranexa] 500 mg PO BID 01/01/19 [History] Roflumilast [Daliresp] 500 mcg PO DAILY 01/01/19 [History] Sertraline [Zoloft] 50 mg PO DAILY 01/01/19 [History] Simvastatin [Zocor] 40 mg PO HS 01/01/19 [History] Theophylline Anhydrous [Yobani-24] 300 mg PO DAILY 01/01/19 [History] Theophylline Anhydrous [Theophylline] 300 mg PO BID 01/01/19 [History] predniSONE [PredniSONE] 20 mg PO BIDWM #6 tablet 01/04/19 [Rx] traZODone [TraZODone] 50 mg PO HS PRN #30 tablet 01/04/19 [Rx] Allergies/Adverse Reactions: Allergy/AdvReac Type Severity Reaction Status Date / Time Penicillins Allergy Difficulty Verified 07/22/18 10:41 Breathing Sulfa (Sulfonamide Allergy Difficulty Verified 07/22/18 10:41 Antibiotics) Breathing sulfamethoxazole Allergy Difficulty Verified 07/22/18 10:41 [From Bactrim] Breathing trimethoprim [From Bactrim] Allergy Difficulty Verified 07/22/18 10:41 Breathing furosemide [From Lasix] AdvReac Dizziness Verified 07/22/18 10:41 Certification: Further, I certify that my clinical findings support that this patient is homebound (i.e. absences from home require considerable and taxing effort and are for medical reasons or [facility] or infrequently or short duration when for other reasons) because: Homebound Reason: Leaving home requires considerable and taxing effort due to condition (Severe COPD) Attestation: My signature below is to certify that this patient is under my care and that I, or nurse practitioner, or a physician's commercial escrow assistant working with me, has a [id number] encounter with this patient.
[2019-01-04] MEDS: *HR* Metformin 500 MG TABLET PO SCH (09:59)
[2019-01-04] MEDS: *HR* GlipiZIDE 5 MG TABLET PO SCH (10:00)
[2019-01-04] MEDS: predniSONE 20 MG TABLET PO SCH (10:00)
[2019-01-04] MEDS: amLODIPine 5 MG TABLET PO SCH (10:01)
[2019-01-04] MEDS: Isosorbide MONOnitrate (24 HR) 60 MG TAB.ER.24H PO SCH (10:01)
[2019-01-04] MEDS: Ranolazine 500 MG TAB.ER.12H PO SCH (10:01)
[2019-01-04] MEDS: Gabapentin 300 MG CAPSULE PO SCH (10:01)
[2019-01-04] MEDS: Fluticasone Propionate Nasal 50 MCG/SPRAY BOTTLE NS SCH (10:06)
== END 2019-01-04 12:09 | disposition home or self-care (01) ==
LOC: EMEROOPIK 11:51 → INPPIK 11:51
PROVIDERS: ADMIT Internal Medicine; ATTEND Internal Medicine